=== PATIENT | male | born 1975 | race Caucasian/White ===

== ENCOUNTER 2016-11-18 10:58 | Inpatient (IN) | payer OTHER ==
[~2016-11-18] VITALS: Ht 182.9 cm; Wt 85.7 kg
[2016-11-18] MEDS ORDERED: IBUPROFEN 600 MG TABLET PO PRN (14:15)
[2016-11-18] MEDS ORDERED: DICYCLOMINE HCL 20 MG TABLET PO PRN (14:15)
[2016-11-18] MEDS ORDERED: ONDANSETRON 4 MG/2 ML VIAL IM PRN (14:15)
[2016-11-18] MEDS ORDERED: MAGNESIUM HYDROXIDE 30 ML LIQUID UDC PO PRN (14:15)
[2016-11-18] MEDS ORDERED: LORAZEPAM 1 MG TABLET PO PRN ×2 (14:15)
[2016-11-18] MEDS ORDERED: ACETAMINOPHEN 325 MG TABLET PO PRN (14:15)
[2016-11-18] MEDS ORDERED: MAG HYDROX/AL HYDROX/SIMETH 30 ML LIQUID UDC PO PRN (14:15)
[2016-11-18] MEDS ORDERED: ONDANSETRON ODT 4 MG TAB.RAPDIS SL PRN (14:15)
[2016-11-18] MEDS ORDERED: MIRALAX 17 GM POWD.PACK PO PRN (14:15)
[2016-11-18] MEDS ORDERED: LOPERAMIDE HCL 2 MG CAPSULE PO PRN ×2 (14:15)
[2016-11-18] MEDS ORDERED: diphenhydrAMINE 50 MG CAPSULE PO PRN (14:15)
[2016-11-18] MEDS ORDERED: LORAZEPAM 2 MG/1 ML VIAL IM PRN (14:15)
--- NOTE | 2016-11-18 14:18 | NUR ---
PREADMISSION Pt 41 y/o male in intake. Pt came from home. Pt alert and oriented to name, place, and time. Perrla. Skin warm and dry to touch. Respirations even and unlabored. Pt made aware of unit rules. VS wnl. No distress noted at this time.
[2016-11-18] MEDS ORDERED: BUPRENORPHINE HCL 2 MG TAB.SUBL SL PRN (14:30)
--- NOTE | 2016-11-18 14:30 | NUR ---
ADMISSION Pt 41 y/o male in intake. Pt came from home. Pt admitted for eoth and oxycodone dependence. Pt alert and oriented to name, place, and time. Perrla. Skin warm and dry to touch. Respirations even and unlabored. Pt made aware of unit rules. VS wnl. Bilateral hand tremors noted slightly. Pt appeared anxious, tapping foot, and pressured speech noted. Pt also stated feels nauseous. No distress noted at this time. Pt denies any sz history. VS wnl. Oriented pt to unit and room. Pt was seen by MD at intake office. Pt started on a 4 day subutex taper staring 11/19/16 and prn ativan today. Bed on lowest position with side rails x2 up for safety. Call light within reach. No distress noted at this time. substance hx: - etoh vodka po 1-2 small bottles daily x 1 year. Last drink was 11/17/16 and had 1 bottle. total=15 years - oxycodone po 60mg daily x 1year. Last used 11/18/16 30 mg. total=1 year Pt denies any medical history and treatment history. Pt states this is his first time in detox and never has been to treatment.
[2016-11-18] MEDS ORDERED: THIAMINE HCL 200 MG/2 ML VIAL IM ONE (14:58)
[2016-11-18] MEDS: LORAZEPAM 1 MG TABLET PO SCH ×3 (15:02→21:50)
[2016-11-18] MEDS: METHOCARBAMOL 750 MG TABLET PO PRN (15:03)
[2016-11-18] MEDS: CLONIDINE HCL 0.1 MG TABLET PO PRN (15:03)
--- NOTE | 2016-11-18 15:15 | NUR ---
PRN Pt states feels nauseous. Zofran odt prn per MD order given and tolerated well.
[2016-11-18] MEDS: GABAPENTIN 300 MG CAPSULE PO SCH (15:26)
--- NOTE | 2016-11-18 16:15 | NUR ---
PRN EVAL Pt denies any nausea at this time.
[2016-11-18 17:25] LABS: BASOPHILS % (AUTO) 0.5 % (0.0-2.0); EOSINOPHILS % (AUTO) 0.1 % (0.0-7.0); HEMATOCRIT 41.9 % (40-50); HEMOGLOBIN 14.2 G/DL (14.0-18.0); LYMPHOCYTES # (AUTO) 1.1 K/UL (0.8-4.8); LYMPHOCYTES % (AUTO) 11.6 % (20.5-51.5); MEAN CORPUSCULAR HEMOGLOBIN 33.6 UUG (27.0-31.0); MEAN CORPUSCULAR HGB CONC 34 g/dL (32.0-37.0); MEAN CORPUSCULAR VOLUME 99.2 FL (82.0-92.0); MONOCYTES # (AUTO) 0.5 K/UL (0.1-1.30); MONOCYTES % (AUTO) 5.3 % (0.0-11.0); NEUTROPHILS # (AUTO) 7.7 K/UL (1.8-8.9); NEUTROPHILS % (AUTO) 82.5 % (38.5-71.5); PLATELET COUNT (AUTO) 244 K/UL (150-450); RED BLOOD CELL COUNT(AUTO) 4.22 MIL/UL (4.7-6.1); WHITE BLOOD COUNT (AUTO) 9.3 K/UL (4.0-11.2)
[2016-11-18 17:34] LABS: ETHANOL < 3 MG/DL (0-0)
[2016-11-18 17:39] LABS: ALANINE AMINOTRANSFERASE 37 U/L (16-63); ALKALINE PHOSPHATASE 63 U/L (50-136); AMYLASE 51 U/L (25-115); ASPARTATE AMINOTRANSFERASE 33 U/L (15-37); BILIRUBIN,TOTAL 0.8 mg/dL (0.2-1.0); CARBON DIOXIDE 28 mmol/L (21-32); CHLORIDE 102 mmol/L (98-107); CREATININE 0.9 mg/dL (0.6-1.3); GLUCOSE 93 mg/dL (74-106); LIPASE 108 U/L (73-393); MAGNESIUM 1.9 mg/dL (1.8-2.4); POTASSIUM 4.8 mmol/L (3.5-5.1); TOTAL PROTEIN, SERUM 7.8 g/dL (6.4-8.2); UREA NITROGEN, BLOOD 18 mg/dL (7-18)
[2016-11-18 17:51] LABS: *AMPHETAMINE, URINE NEGATIVE (NEGATIVE); *BARBITURATE, URINE NEGATIVE (NEGATIVE); *CANNABINOID, URINE NEGATIVE (NEGATIVE); *COCCAINE, URINE NEGATIVE (NEGATIVE); *OPIATE, URINE POSITIVE (NEGATIVE); *PHENCYCLIDINE SCREEN,URINE NEGATIVE (NEGATIVE)
--- NOTE | 2016-11-18 18:42 | NUR ---
END OF SHIFT Pt 41 y/o male admitted for etoh and opioid dependence. Pt alert and oriented to name, place, and time. Perrla. Skin warm and slightly moist to touch. Respirations even and unlabored. Bilateral hand tremors noted. Pt observed mostly in room throughout the day. Pt did not attend group activity. Pt medication compliant and tolerated well. No ASE noted. Pt was seen by MD. Bed on lowest position with side rails x2 up for safety. Call light within reach. No distress noted at this time.
--- NOTE | 2016-11-18 19:30 | NUR ---
Start of shift note Report received from AM nurse. Patient is a 41 year old male admitted to [facility] on 11-18-16 for opiate and alcohol dependence. Patient reports using vodka 1-2 small bottles a day as well as oxycodone 60 mg daily. Both used in this amount for last year. Last use for Alcohol on 11-17-16 and last used opiates on 11-18-16. Patient denies any history of seizures. He is on a full code regular diet, with NKA. He reports no past medical history. His last COWS was 4 and his CIWA 3. Vital signs stable. Bed is in locked and lowest position. Side rails up x 2 call light within reach. Patient in his room resting. Denies any current complaints. Adjusting to unit.
[2016-11-18 20:00] VITALS: BP 130/92
[2016-11-18] MEDS: MAGNESIUM CHLORIDE 64 MG TABLET.SA PO SCH (21:00)
[2016-11-18] MEDS ORDERED: GABAPENTIN 300 MG CAPSULE PO SCH (21:00)
--- NOTE | 2016-11-18 21:53 | NUR ---
PRN Medication Patient received Benadryl 50 mg PO at 2153 for complaints of insomnia. Effect pending
--- NOTE | 2016-11-18 22:53 | NUR ---
Reassessment of patient Patient received Benadryl 50 mg PO at 2153 for complaints of insomnia. Reassessed after one hour with good effect noted Patient in bed, eyes closed. Breathing even and unlabored.
[2016-11-19] VITALS: BP 120/86
--- NOTE | 2016-11-19 04:05 | NUR ---
COWS/CIWA deferred. Vital signs refused Patient refused 0400 vital signs. eyes closed, resting comfortably. COWS/CIWA deferred for sleep. Respirations 16. Breathing even and unlabored.
--- NOTE | 2016-11-19 06:52 | NUR ---
End of Shift report Report to AM nurse. Patient is a 41 year old male admitted to [facility] on 11-18-16 for opiate and alcohol dependence. Patient reports using vodka 1-2 small bottles a day as well as Oxycodone 60 mg daily. Both used in this amount for last year. Last use for Alcohol on 11-17-16 and last used opiates on 11-18-16. Patient denies any history of seizures. He is on a full code regular diet, with NKA. He reports no past medical history. His COWS at 8 pm was 6 and CIWA was 5. Vital signs 8 pm BP 130/92, P76, R 18, T 97.9 SPO2 98% on RA. Patient received PRN Benadryl 50 mg at 2153 for insomnia with good effect. At 0000 CIWA 0, COWS 1. VS BP 120/86, T 98.0, P 84, R 18, SPO2 98% on RA. Mood stable with flat affect, and appears withdrawn spending most of shift in room. Denies SI or HI. Intake 855 ml. Output 2 voids. Slept a total of 6 hours. Bed is in locked and lowest position. Side rails up x 2 call light within reach. Patient in his room resting at change of shift.
--- NOTE | 2016-11-19 07:30 | NUR ---
START OF SHIFT Pt 41 y/o male admitted for etoh and opioid dependence. Pt received in room on bed with eyes closed resting, but easily arousable to name. Pt alert and oriented to name, place, and time. Perrla. Skin warm and slightly moist to touch. Respirations even and unlabored. Bilateral hand tremors noted. It was reported that pt slept for 6 hours last night. Bed on lowest position with side rails x2 up for safety. Call light within reach. No distress noted at this time.
[2016-11-19 08:00] VITALS: BP 126/85
[2016-11-19] MEDS: GABAPENTIN 300 MG CAPSULE PO SCH ×3 (08:44→20:24)
[2016-11-19] MEDS: MULTIVITAMINS,THERAPEUTIC TABLET PO SCH (08:44)
[2016-11-19] MEDS: THIAMINE HCL 100 MG TABLET PO SCH (08:45)
[2016-11-19] MEDS: MAGNESIUM CHLORIDE 64 MG TABLET.SA PO SCH ×2 (08:45→20:24)
[2016-11-19] MEDS: FOLIC ACID 1 MG TABLET PO SCH (08:45)
[2016-11-19] MEDS: LORAZEPAM 1 MG TABLET PO SCH ×3 (08:45→20:23)
--- NOTE | 2016-11-19 08:51 | NUR ---
SUBUTEX HELD Subutex scheduled held. Cows=6.
[2016-11-19] MEDS ORDERED: BUPRENORPHINE HCL 2 MG TAB.SUBL SL SCH (09:00)
[2016-11-19] MEDS ORDERED: DOCUSATE SODIUM 250 MG CAPSULE PO SCH (09:00)
[2016-11-19] MEDS ORDERED: 4 DAY TAPER BUPRENORPHINE -SERENITY PROTOCOL SL PRN (09:00)
[2016-11-19] MEDS ORDERED: TUBERCULIN,PURIF.PROT.DERIV. 5 TU/0.1 ML TEST ID ONE (09:00)
[2016-11-19] MEDS ORDERED: BUPRENORPHINE HCL 2 MG TAB.SUBL SL PRN (12:30)
[2016-11-19 12:59] VITALS: BP 132/99
[2016-11-19 16:00] VITALS: BP 127/82
--- NOTE | 2016-11-19 18:21 | NUR ---
PRN Pt with cows=15. subutex 4 mg po prn per MD order given and tolerated well.
--- NOTE | 2016-11-19 19:00 | NUR ---
Start of Shift Patient Received. Patient is in bed, awake, alert and verbally responsive. Breathing even and non labored. No signs of pain or discomfort noted. Patient is a 41 year old male admitted on 11/18/16 for ETOH and Opiate Dependence under the care of Dr. Gardner. Patient is currently receiving a 5 day Ativan taper with PRN Subutex available for increased signs and symptoms of withdrawal. No known allergies, Full Code, following a Regular diet, placed on fall precautions, skin noted intact. Patient denies past medial history. Per endorsement, patient was given PRN Subutex for COWS score of 15. All needs attended to promptly. Will continue plan of care as ordered.
[2016-11-19 20:14] VITALS: BP 143/112
[2016-11-19] MEDS: CLONIDINE HCL 0.1 MG TABLET PO PRN (20:24)
--- NOTE | 2016-11-19 20:30 | NUR ---
PRN Medication administration Patient noted with BP of 143/112 and pulse of 103. PRN Clonidine administered with routine dose of Ativan 2mg. Will continue to monitor for effectiveness of medication.
[2016-11-19] MEDS ORDERED: hydrALAZINE HCL 50 MG TABLET PO PRN (22:00)
[2016-11-19] MEDS ORDERED: LORAZEPAM 1 MG TABLET PO ONE (22:15)
[2016-11-19] MEDS ORDERED: BUPRENORPHINE HCL 2 MG TAB.SUBL SL ONE ×2 (22:15→22:25)
--- NOTE | 2016-11-19 22:15 | NUR ---
PRN Medication Reassessment/ MD Communication Patients blood pressure was reassessed and noted as 152/101 with a pulse of 113. COWS 5 and CIWA 5. MD made aware with new order for One time dose of Ativan 2mg, Subutex 4mg, and Hydralazine 50mg PRN Q6H. Orders noted and carried out. Will administer medications accordingly.
[2016-11-19] MEDS ORDERED: hydrALAZINE HCL 25 MG TABLET ONE (22:25)
[2016-11-19] MEDS ORDERED: LORAZEPAM 1 MG TABLET ONE (22:26)
[2016-11-19 22:59] VITALS: BP 139/96
--- NOTE | 2016-11-19 23:00 | NUR ---
PRN Medication Reassessment Patient is noted in bed with eyes close, easily aroused to verbal stimuli. Breathing even and non labored. No pain or discomfort noted. Blood Pressure Reassessed and noted as 139/96 and pulse of 96. PRN mediation noted to be effective. Patient verbalized "I feel fine but now feel like the edge is taken off now." Patient noted to turn off lights and TV and attempt to fall asleep. Will continue to monitor.
[2016-11-20] VITALS (7 sets, daily range): BP systolic 126–142; BP diastolic 79–107
[2016-11-20] MEDS: CLONIDINE HCL 0.1 MG TABLET PO PRN ×2 (04:52→17:08)
[2016-11-20] MEDS ORDERED: LORAZEPAM 1 MG TABLET PO ONE (05:00)
--- NOTE | 2016-11-20 05:00 | NUR ---
MD Communication/PRN Medication Administration Patient noted awake and verbalizing increased audio and visual hallucinations. Patient was very clear in verbalizing Its like I was back at work and I was trying to hand something to a co-worker and realize I wasnt at work or another time I was playing soccer with my kids and when I came to I realized I was here. Patient is alert and oriented to name, time, place and situation. MD made aware with one time dose of Ativan 2mg for CIWA of 20. Blood pressure also noted as 142/107 and pulse of 92. Patient given PRN Clondine. Will continue to monitor for effectiveness of medication.
[2016-11-20] MEDS ORDERED: LORAZEPAM 1 MG TABLET ONE (05:04)
[2016-11-20 05:07] LABS: HEPATITIS B SURFACE AG Negative (Negative)
--- NOTE | 2016-11-20 05:40 | NUR ---
PRN Medication Reassessment Patient noted in bed with eyes closed and TV on. Breathing even and non labored. Blood pressure reassessed and noted as 136/92 and pulse of 94. Patient noted with a COWS of 4 and CIWA of 9. Patient still verbalizing visual and auditory hallucinations but verbalizes of hallucinations not being frightening. PRN Clonidine noted to be effective. Will continue to monitor.
--- NOTE | 2016-11-20 07:12 | NUR ---
End of Shift Patient is in bed awake, alert and verbally responsive. Breathing even and non labored. No signs of pain or discomfort noted. Patient admitted on 11/18/16 for ETOH and Opiate Dependence under the care of Dr. Gardner. Patient is currently receiving a 5 day Ativan taper and will start a modified Subutex taper 11/20/16 0900. Patient was given Ativan 2mg x2 with Subutex 4mgn x1. Clonidine administered x2 during shift with a new order for hydralazine which was administered x1. Patient noted episodes of Auditory and visual hallucinations during shift. Patient noted to sleep in intervals during shift but noted to be very restless while sleeping. All needs attended to promptly. Will endorse to continue plan of care as ordered.
[2016-11-20] MEDS: FOLIC ACID 1 MG TABLET PO SCH (08:35)
[2016-11-20] MEDS: LORAZEPAM 1 MG TABLET PO SCH ×4 (08:35→21:27)
[2016-11-20] MEDS: MULTIVITAMINS,THERAPEUTIC TABLET PO SCH (08:35)
[2016-11-20] MEDS: THIAMINE HCL 100 MG TABLET PO SCH (08:35)
[2016-11-20] MEDS: MAGNESIUM CHLORIDE 64 MG TABLET.SA PO SCH ×2 (08:35→21:27)
[2016-11-20] MEDS: GABAPENTIN 300 MG CAPSULE PO SCH ×3 (08:35→21:27)
[2016-11-20] MEDS: BUPRENORPHINE HCL 2 MG TAB.SUBL SL SCH ×3 (08:36→21:27)
[2016-11-20] MEDS ORDERED: BUPRENORPHINE HCL 2 MG TAB.SUBL SL SCH ×2 (09:00→15:00)
[2016-11-20] MEDS: METHOCARBAMOL 750 MG TABLET PO PRN (12:55)
--- NOTE | 2016-11-20 12:56 | NUR ---
PRN Pt states has body aches 6/10, mostly around the neck area. Robaxin po prn per MD order given and tolerated well.
--- NOTE | 2016-11-20 12:57 | NUR ---
PRN Pt states has stomach cramps. Bentyl po prn per MD order given and tolerated well.
[2016-11-20] MEDS: QUETIAPINE FUMARATE 25 MG TABLET PO SCH ×2 (13:45→21:27)
--- NOTE | 2016-11-20 13:45 | NUR ---
NON-ADMIN MED Seroquel 50mg po due at 1345. Cl[address] Dr[address] Dowling and to have medication start at 2100 on 11/20/16.
--- NOTE | 2016-11-20 13:56 | NUR ---
PRN EVAL Pt states body aches 04/24.
--- NOTE | 2016-11-20 13:57 | NUR ---
PRN EVAL Pt states does not have stomach cramps.
[2016-11-20] MEDS: HYDROXYZINE PAMOATE 25 MG CAPSULE PO PRN (17:07)
--- NOTE | 2016-11-20 17:11 | NUR ---
PRN Pt states feels very anxious and is experiencing some sweats. Catapres po prn per MD order given and tolerated well.
--- NOTE | 2016-11-20 17:11 | NUR ---
PRN Pt states feels anxious. Vistaril po prn per MD order given and tolerated well.
--- NOTE | 2016-11-20 18:11 | NUR ---
PRN EVAL Pt states feels less anxious and more calm and the moment.
--- NOTE | 2016-11-20 18:16 | NUR ---
END OF SHIFT Pt 41 y/o male admitted for etoh and opioid dependence. Pt alert and oriented to name, place, and time. Perrla. Skin warm and slightly moist to touch. Respirations even and unlabored. Bilateral hand tremors noted. Pt observed mostly in room throughout the day. Pt selective with group activity. Pt medication compliant and tolerated well. No ASE noted. Pt was seen by MD. Bed on lowest position with side rails x2 up for safety. Call light within reach. No distress noted at this time.
--- NOTE | 2016-11-20 19:00 | NUR ---
Start of Shift Patient Received. Patient is in bed, awake, alert and verbally responsive. Breathing even and non labored. No signs of pain or discomfort noted. Patient continues on both 5 day Ativan and 5 day Subutex tapers. Per endorsement, patient was given PRN Robaxin, Bentyl, Vistaril, and Clonidine with all medications noted to be effective. Last noted COWS 5 and CIWA 3. All needs attended to promptly. Will continue plan of care as ordered.
[2016-11-21] VITALS (7 sets, daily range): BP systolic 113–155; BP diastolic 83–111
--- NOTE | 2016-11-21 07:03 | NUR ---
End of Shift Patient is in bed sleeping but easily aroused to verbal stimuli. Breathing even and non labored. No signs of pain or discomfort noted. Patient continues on 5 day Ativan and modified 4 day Subutex taper. Patient started on routine Seroquel and tolerated well. No episodes of hallucinations noted or verbalized. No PRN medications administered. Last noted COWS 6 and CIWA 5. All needs attended to promptly. Will endorse to continue plan of care as ordered.
--- NOTE | 2016-11-21 08:00 | NUR ---
START OF SHIFT NOTE Received pt Aox4. Patient states he feels "okay" and was able to sleep. He is on 5 day Ativan/4 day Subutex taper. No PRNs given last shift per hypoid gear generator. He slept 9.5 hours. Last COWS 5 CIWA 5 at 0800 this morning. Encouraged increase in fluid intake to facilitate detox. Encouraged pt to attend groups and activities. Encouraged pt to notify RN if S/S of W/D worsen. All needs met. Will monitor closely and offer help frequently.
[2016-11-21] MEDS: MULTIVITAMINS,THERAPEUTIC TABLET PO SCH (08:57)
[2016-11-21] MEDS: THIAMINE HCL 100 MG TABLET PO SCH (08:57)
[2016-11-21] MEDS: MAGNESIUM CHLORIDE 64 MG TABLET.SA PO SCH ×2 (08:57→20:05)
[2016-11-21] MEDS: FOLIC ACID 1 MG TABLET PO SCH (08:57)
[2016-11-21] MEDS: GABAPENTIN 300 MG CAPSULE PO SCH ×3 (08:57→20:04)
[2016-11-21] MEDS: LORAZEPAM 1 MG TABLET PO SCH ×3 (08:57→20:04)
[2016-11-21] MEDS ORDERED: BUPRENORPHINE HCL 2 MG TAB.SUBL SL SCH ×2 (09:00)
--- NOTE | 2016-11-21 10:35 | NUR ---
patient came to nurses station c/o hallucinations. patient denies S/I or H/I. Dr. leavitt on unit and notified. 2 mg Ativan one time dose ordered for now. Will administer.
[2016-11-21] MEDS ORDERED: LORAZEPAM 1 MG TABLET PO ONE (10:45)
--- NOTE | 2016-11-21 11:30 | NUR ---
ativan reassessment ciwa decreased to 5. pt reports improvement in symptoms
[2016-11-21] MEDS: QUETIAPINE FUMARATE 25 MG TABLET PO PRN (13:59)
[2016-11-21] MEDS: BUPRENORPHINE HCL 2 MG TAB.SUBL SL SCH ×2 (14:00→20:04)
--- NOTE | 2016-11-21 18:26 | NUR ---
END OF SHIFT NOTE Patient continued on 5 day Ativan/4 day Subutex taper and tolerating well. PRN Seroquel and Ativan given with effectiveness. Last COWS 5 CIWA 4. Patient reported hallucinations during shift- MD and Psych Dr aware. Patient denies S/I or H/I. Patient attended groups and activities. All needs met. All safety measures in place. Vital signs stable. Will endorse to night nurse.
--- NOTE | 2016-11-21 19:00 | NUR ---
Start of Shift Patient Received. Patient is in bed, awake, alert and verbally responsive. Breathing even and non labored. No signs of pain or discomfort noted. Patient continues on both 5 day Ativan and 5 day Subutex tapers. Per endorsement, patient was given one time dose of Ativan 2mg for increased hallucinations as well as PRN Seroquel. Last noted CIWA 4 and COWS 5. All needs attended to promptly. Will continue plan of care as ordered.
[2016-11-21] MEDS: CLONIDINE HCL 0.1 MG TABLET PO PRN (20:04)
[2016-11-21] MEDS: QUETIAPINE FUMARATE 25 MG TABLET PO SCH (20:04)
--- NOTE | 2016-11-21 20:10 | NUR ---
PRN Medication Administration Patient noted with elevated Blood pressure 150/108 and pulse of 111. PRN Clonidine administered as per orders. Will continue to monitor.
--- NOTE | 2016-11-21 21:20 | NUR ---
PRN Medication Administration Patients blood pressure reassessed and noted as 137/93 and pulse of 95. PRN Clonidine noted to be effective. Will continue to monitor. Addendum: 11/22/16 at 0012 by FIDENCIO MOREIRA LVN PRN Medication Reassessment
[2016-11-22] VITALS (7 sets, daily range): BP systolic 136–147; BP diastolic 90–103
--- NOTE | 2016-11-22 07:06 | NUR ---
End of Shift Patient is in bed sleeping but easily aroused to verbal stimuli. Breathing even and non labored. No signs of pain or discomfort noted. Patient continues on 5 day Ativan and modified 4 day Subutex taper. Patient continues to verbalize hallucinations with increased episodes prior to sleep. He is able to describe episodes as harmless but very vivid. Patient was medicated accordingly. Patient is able to verbalize episodes have minimized but still noted prior to sleeping. Patient was given PRN Clonidine for elevated BP with medication noted to be effective. Last noted COWS 5 and CIWA 9. All needs attended to promptly. Will endorse to continue plan of care as ordered.
--- NOTE | 2016-11-22 07:30 | NUR ---
START OF SHIFT Received report from night nurse. 41 year old male patient admitted on 11/18/16 for ETOH, and Oxycodone withdrawals. Pt has been placed on 5 day Ativan and 4 day Subutex taper and is tolerating well. Denies allergies, full code and regular diet. Pt denies past medical history. PRN Clonidine administered and effective, pt slept for 7 hours. Pt discomfort and withdrawal symptoms have been managed with ordered medications. All needs met at this time. Will continue to monitor.
[2016-11-22] MEDS ORDERED: LORAZEPAM 1 MG TABLET PO SCH (09:00)
[2016-11-22] MEDS ORDERED: BUPRENORPHINE HCL 2 MG TAB.SUBL SL SCH (09:00)
[2016-11-22] MEDS: MAGNESIUM CHLORIDE 64 MG TABLET.SA PO SCH ×2 (09:17→20:46)
[2016-11-22] MEDS: GABAPENTIN 300 MG CAPSULE PO SCH ×3 (09:17→20:46)
[2016-11-22] MEDS: MULTIVITAMINS,THERAPEUTIC TABLET PO SCH (09:17)
[2016-11-22] MEDS: FOLIC ACID 1 MG TABLET PO SCH (09:17)
[2016-11-22] MEDS: THIAMINE HCL 100 MG TABLET PO SCH (09:17)
[2016-11-22] MEDS: LORAZEPAM 1 MG TABLET PO SCH ×2 (09:18→20:46)
[2016-11-22] MEDS: BUPRENORPHINE HCL 2 MG TAB.SUBL SL SCH ×3 (09:18→20:52)
[2016-11-22] MEDS: QUETIAPINE FUMARATE 25 MG TABLET PO PRN ×2 (09:24→16:54)
--- NOTE | 2016-11-22 09:24 | NUR ---
PRN SEROQUEL PRN Seroquel 25mg administered as ordered, pt is agitated and reports this medication helps. Will reassess.
--- NOTE | 2016-11-22 10:24 | NUR ---
REASSESSMENT Pt states Seroquel was effective and appears less agitated.
[2016-11-22] MEDS: METHOCARBAMOL 750 MG TABLET PO PRN ×2 (13:03→21:03)
--- NOTE | 2016-11-22 13:03 | NUR ---
PRN ROBAXIN Pt c/o 5/10 generalized back aches, PRN Robaxin administered as ordered. Will reassess.
--- NOTE | 2016-11-22 14:03 | NUR ---
REASSESSMENT Pt reports Robaxin was effective and the aches are more tolerable now 04/24 and does not request for more medication at this time.
[2016-11-22] MEDS: HYDROXYZINE PAMOATE 25 MG CAPSULE PO PRN (15:14)
--- NOTE | 2016-11-22 15:15 | NUR ---
PRN VISTARIL Pt reports increased anxiety. PRN Vistaril administered as ordered. Pt encouraged to attend group activities and verbalize feelings. Will reassess.
--- NOTE | 2016-11-22 16:15 | NUR ---
REASSESSMENT Pt states Vistaril was effective and anxiety decreased at this time.
[2016-11-22] MEDS: CLONIDINE HCL 0.1 MG TABLET PO PRN (16:54)
--- NOTE | 2016-11-22 16:55 | NUR ---
PRN CLONIDINE/SEROQUEL Pt has agitation, anxiety, hot cold sweats, b/p is 147/103, heart rate 100. Pt has auditory and visual hallucinations, no thoughts of hurting himself or anyone else. Pt states he knows hallucinations are not real, calming reassurance provided. PRN Clonidine and Seroquel administered as ordered. Will continue to monitor.
--- NOTE | 2016-11-22 18:08 | NUR ---
REASSESSMENT Pt denies hallucinations at this time, b/p is 143/93, heart rate 70. Medications were effective. Pt is resting in bed at this time.
--- NOTE | 2016-11-22 18:55 | NUR ---
END OF SHIFT Endorsed to night nurse. 41 year old male patient admitted on 11/18/16 for ETOH, and Oxycodone withdrawals. Pt has been placed on 5 day Ativan and 4 day Subutex taper and is tolerating well. PRN Seroquel, Vistaril, Robaxin, and Clonidine administered and effective. Most recent COWS 6 and CIWA 10. Pt had bouts of hallucination during shift, Seroquel effective. All needs met at this time. Night nurse will continue to monitor.
--- NOTE | 2016-11-22 20:00 | NUR ---
Start of Shift Pt is a 41 year old male admitted for ETOH/Oxycodone dependence, placed on 5 day Ativan and modified 4 day Subutex taper. Pt reported consuming 1-2 small bottles daily x 1 year and Oxycodone 60mg x1 year. Pt denies any past medical history. NKA, regular diet, fall precautions and full code. Upon assessment, pt reports feeling anxious, muscle/joint aches, reports chills, denies visual/auditory hallucinations at time of assessment, report mild sensitivity to light. Medications due. Safety measures in place, call light within reach, side rails up x2, bed locked and in low position. Will continue to monitor.
[2016-11-22] MEDS: QUETIAPINE FUMARATE 25 MG TABLET PO SCH (20:46)
--- NOTE | 2016-11-22 21:03 | NUR ---
PRN Administration Pt reports muscle aches, rated 5-6/10. Robaxin 750mg PRN administered. Safety measures in place. Will continue to monitor
--- NOTE | 2016-11-22 22:03 | NUR ---
PRN Reassessment Pt reports relief of muscle aches, Robaxin effective. Needs met, safety measures in place. Will continue to monitor.
[2016-11-23] VITALS: BP 138/95
--- NOTE | 2016-11-23 | NUR ---
Vital Signs BP 138/95, pulse 102, resp 16, SpO2 100% room air, temp 98.1 COWS/CIWA deferred due to pt sleeping, to assess while pt is awake as ordered Safety measures in place, will continue to monitor
[2016-11-23] MEDS: QUETIAPINE FUMARATE 25 MG TABLET PO PRN ×2 (02:29→12:20)
--- NOTE | 2016-11-23 02:33 | NUR ---
Pt presents with anxiety. Pt states he has auditory and visual hallucinations. Pt denies SI/HI. Pt is redirected with calming reassurance provided, pt in return verbalizes understanding that hallucinations are not real. Seroquel 25mg PRN administered. Pt also reports back pain, rated 5/10. Motrin 600mg PRN administered. Safety measures in place. Will continue to monitor. Addendum: 11/23/16 at 0303 by DAXA MCBRIDE RN PRN Administration
--- NOTE | 2016-11-23 03:33 | NUR ---
Upon reassessment of Seroquel, pt is sleeping, eyes closed, respirations even/unlabored. Safety measures in place. Will continue to monitor.
[2016-11-23 04:00] VITALS: BP 131/98
--- NOTE | 2016-11-23 04:00 | NUR ---
Vital Signs BP 131/98, pulse 100, resp 17, SpO2 99% room air, temp 98 COWS/CIWA deferred due to pt sleeping, to assess while pt is awake as ordered Safety measures in place, will continue to monito
--- NOTE | 2016-11-23 07:00 | NUR ---
End of Shift Pt is a 41 year old male admitted for ETOH/Oxycodone dependence, placed on 5 day Ativan and modified 4 day Subutex taper. Pt reported consuming 1-2 small bottles daily x 1 year and Oxycodone 60mg x1 year. Pt denies any past medical history. NKA, regular diet, fall precautions and full code. During shift, pt reported feeling anxious, muscle/joint aches, reports chills, denies visual/auditory hallucinations at time of assessment, report mild sensitivity to light - taper medications administered - latest COWS 7 and CIWA 9. Robaxin 750mg PRN administered for muscle aches, effective as reported per patient. At 0233, Pt stated he had auditory and visual hallucinations with denial of SI/HI. Pt redirected, with understanding that hallucinations are not real, calming reassurance provided. Seroquel 25mg PRN administered. Motrin 600mg PRN administered for pain. Pt slept for 7 hours, intake of 1105 ml PO, voids x2 and stool x0. Safety measures in place, call light within reach, side rails up x2, bed locked and in low position. Endorsed to day shift nurse.
[2016-11-23 08:00] VITALS: BP 142/97
--- NOTE | 2016-11-23 08:20 | NUR ---
START OF SHIFT: RECEIVED PT A/O X 4 LAYING IN BED. HE DENIES AUDIO AND VISUAL HALLUCINATIONS AT THIS TIME BUT STATES HE SAW AND HEARD RATS LAST NIGHT. ENCOURAGED PT TO NOTIFY STAFF IF HE HAS ANY HALLUCINATIONS TODAY. HE CONTINUES ON SUBUTEX/ATIVAN TAPER. CIWA 9 COWS 9. ENCOURAGED INCREASED FLUIDS TO ASSIST IN FACILITATING DETOX PROCESS.WILL CONTINUE TO MONITOR AND MANAGE S/S OF W/D.
[2016-11-23] MEDS: MAGNESIUM CHLORIDE 64 MG TABLET.SA PO SCH ×2 (08:27→20:05)
[2016-11-23] MEDS: FOLIC ACID 1 MG TABLET PO SCH (08:27)
[2016-11-23] MEDS: MULTIVITAMINS,THERAPEUTIC TABLET PO SCH (08:27)
[2016-11-23] MEDS: CLONIDINE HCL 0.1 MG TABLET PO PRN (08:28)
[2016-11-23] MEDS: THIAMINE HCL 100 MG TABLET PO SCH (08:29)
[2016-11-23] MEDS: GABAPENTIN 300 MG CAPSULE PO SCH ×3 (08:29→20:05)
[2016-11-23] MEDS ORDERED: LORAZEPAM 1 MG TABLET PO SCH (09:00)
[2016-11-23] MEDS ORDERED: BUPRENORPHINE HCL 2 MG TAB.SUBL SL SCH (09:00)
[2016-11-23 12:00] VITALS: BP 128/96
--- NOTE | 2016-11-23 12:25 | NUR ---
PRN SEROQUEL GIVEN FOR REPORTED AUDITORY HALLUCINATIONS PT REPORTS HEARING VOICES. WILL MONITOR EFFECTIVENESS.
[2016-11-23] MEDS ORDERED: HYDR-3895 PO (13:11)
[2016-11-23] MEDS ORDERED: METH-406 PO (13:11)
[2016-11-23] MEDS ORDERED: ONDA4TAB11 SL (13:11)
[2016-11-23] MEDS ORDERED: GABA-534 PO (13:11)
[2016-11-23] MEDS ORDERED: HYDR50TA68 PO (13:11)
[2016-11-23] MEDS ORDERED: DIPH50CA37 PO (13:11)
[2016-11-23] MEDS ORDERED: QUET25TA PO ×2 (13:11)
[2016-11-23] MEDS ORDERED: CLON0.1T14 PO (13:11)
[2016-11-23] MEDS ORDERED: DICY20TA28 PO (13:11)
--- NOTE | 2016-11-23 13:25 | NUR ---
PT STATES SEROQUEL WAS EFFECTIVE. HE DENIES HALLUCINATIONS AT THIS TIME. WILL CONTINUE TO MONITOR.
[2016-11-23 16:00] VITALS: BP 132/92
--- NOTE | 2016-11-23 18:31 | NUR ---
END OF SHIFT: PT COMPLETED ATIVAN/SUBUTEX TAPER. LAST CIWA 4 COWS 4. HE REPORTED BODY ACHES AND SWEATS EARLY IN SHIFT BUT STATES DETOX MEDS ARE EFFECTIVE. HE HAD SOME AUDITORY HALLUCINATIONS AND PRN SEROQUEL GIVEN AND EFFECTIVE. PT DENIES HALLUCINATIONS AT THIS TIME. PT IS SCHEDULED FOR DISCHARGE ON 11/24 TO [facility]. WILL PASS SHIFT REPORT TO ONCOMING NIGHT NURSE.
--- NOTE | 2016-11-23 19:11 | NUR ---
Start of shift note Received report from day shift nurse. Pt is a n41 yo male, A+OX4, presenting to [facility] for ETOH/Opiate dependence. Pt has NKA, is on Full Code status, and on Regular diet. Pt has no medical HX to report. Pt is on Fall precautions. Pt has completed 5 day Ativan and 4 day Subutex tapers, tolerated well, and is due for discharge tomorrow. No s/s of distress noted at this time. Respirations even and unlabored. Will continue to monitor.
[2016-11-23] MEDS: QUETIAPINE FUMARATE 25 MG TABLET PO SCH (20:05)
[2016-11-23 20:11] VITALS: BP 142/98
--- NOTE | 2016-11-23 22:07 | NUR ---
PRN Maalox Pt c/o heartburn and requested for PRN Maalox. Medication given and tolerated well. Will reassess within 1 HR. Will continue to monitor.
--- NOTE | 2016-11-23 23:05 | NUR ---
PRN Maalox Reassessment Medication effective. Pt is resting well in bed. No s/s of ASE/distress noted at this time. Respirations even and unlabored. Will continue to monitor.
[2016-11-24 00:20] VITALS: BP 135/94
[2016-11-24 04:11] VITALS: BP 134/92
--- NOTE | 2016-11-24 07:00 | NUR ---
End of shift note Pt is a 41 yo male, A+OX4, presenting to [facility] for ETOH/Opiate dependence. Pt has NKA, is on Full Code status, and on Regular diet. Pt has no medical HX to report. Pt is on Fall precautions. Pt has completed 5 day Ativan and 4 day Subutex tapers, tolerated well, and is due for discharge today. Pt was given PRN Maalox @2207. Pt slept for a total of 6 HRS. Last COWS: 2 and Last CIWA: 2 @0400. No s/s of distress noted at this time. Respirations even and unlabored. Will endorse to day shift nurse.
--- NOTE | 2016-11-24 07:30 | NUR ---
Start of shift note; Received report from night nurse. Patient is a 41 year old male admitted on 11/18/16 for ETOH/Opiate dependence. Patient completed Ativan and Subutex tapers without any adverse reactions. Patient is medically cleared for discharge today. Patient is on fall and seizure precautions. Bed in lowest position, call light within reach. Met all needs.
[2016-11-24 08:00] VITALS: BP 133/99
[2016-11-24] MEDS: MAGNESIUM CHLORIDE 64 MG TABLET.SA PO SCH (08:13)
[2016-11-24] MEDS: FOLIC ACID 1 MG TABLET PO SCH (08:13)
[2016-11-24] MEDS: GABAPENTIN 300 MG CAPSULE PO SCH (08:13)
[2016-11-24] MEDS: THIAMINE HCL 100 MG TABLET PO SCH (08:13)
[2016-11-24] MEDS: MULTIVITAMINS,THERAPEUTIC TABLET PO SCH (08:13)
--- NOTE | 2016-11-24 09:35 | NUR ---
Discharge note; Patient completed treatment without any adverse reactions. Patient is medically cleared for discharge. All valuables, belongings, prescriptions given to patient. Patient left the hospital at exactly 0935 on 11/24/16. patient left in a stable condition. Met all needs.
== END 2016-11-24 09:35 | disposition other institution (70) | DRG 895 ==
LOC: SRC 13:17
PROVIDERS: ADMIT Internal Medicine; ATTEND Internal Medicine
PROC: HZ2ZZZZ Detoxification Services for Substance Abuse Treatment (ICD-10-PCS; principal; 2016-11-18)
PROC: HZ31ZZZ Individual Counseling for Substance Abuse Treatment, Behavioral (ICD-10-PCS; 2016-11-19)
PROC: HZ41ZZZ Group Counseling for Substance Abuse Treatment, Behavioral (ICD-10-PCS; 2016-11-20)
DX: F10.232 Alcohol dependence with withdrawal with perceptual disturbance (principal); F10.251 Alcohol dependence with alcohol-induced psychotic disorder with hallucinations; I10 Essential (primary) hypertension; F11.23 Opioid dependence with withdrawal; Y90.0 Blood alcohol level of less than 20 mg/100 ml; F17.210 Nicotine dependence, cigarettes, uncomplicated; Z81.8 Family history of other mental and behavioral disorders; F10.239 Alcohol dependence with withdrawal, unspecified; G47.00 Insomnia, unspecified; F41.9 Anxiety disorder, unspecified
CPT/HCPCS: 36415; 70030-TC; 80307; 80361; 83690; 83735; 85025; 86580; 86592; 86705; 86803; 87340; 87806; A4663; G0480; Q0162; Q0163